=== PATIENT | male | born 1975 | race American Indian/Alaskan Native ===

== ENCOUNTER 2021-03-25 07:41 | Outpatient (CLI) | payer OTHER ==
[2021-03-25 08:57] LABS: Hematocrit 38.2 % (35.5-45.6); Hemoglobin 13.1 gm/dl (11.8-15.2); Mean Corpuscular HGB Conc 34 % (32-34); Mean Corpuscular Volume 93 fl (84-94); Platelet Count 170 K/mm3 (140-440); Red Blood Count 4.11 M/mm3 (3.65-5.03); Red Cell Distribution Width 13.1 % (13.2-15.2)
[2021-03-25 09:06] LABS: INR 0.85 (0.87-1.13)
[2021-03-25 09:08] LABS: BUN/Creatinine Ratio 16; Blood Urea Nitrogen 14 mg/dL (9-20); Calcium 9.7 mg/dL (8.4-10.2); Hemolysis Index 49
[2021-03-25] MEDS ORDERED: HYDROmorphone 1 MG/1 ML INJ IV NR (09:31)
[2021-03-25] MEDS ORDERED: SODIUM CHLORIDE 0.9% 500 ML 500 ML IV SCH (10:00)
[2021-03-25] MEDS ORDERED: ONDANSETRON 4 MG/2 ML INJ IV NR (10:00)
[2021-03-25] MEDS ORDERED: HYDROcodone/ACETAMINOPHEN 5-325 MG TAB PO NR (12:24)
--- NOTE | 2021-03-25 13:52 | Cat Scan Report ---
CT-GUIDED LIVER BIOPSY INDICATION : ELEVATED LIVER ENZYMES. COMPARISON: None at this facility PROCEDURE: The risks (including but not limited to bleeding and infection) and benefits were explain ed to the patient and informed consent was obtained. All CT scans at this location are performed usi ng CT dose reduction for ALARA by means of automated exposure control. A time out procedure was performed. The procedure site was prepped and draped in the usual sterile f ashion and lidocaine was used for local anesthesia. Anxiolysis was accomplished with 0.5 mg of IV Dil audid and 1 mg of IV Zofran. Using CT guidance, a 17-gauge introducer needle was advanced into the lateral right hepatic lobe. 2 s eparate 1.3 cm 18-gauge core biopsies were obtained and placed in formalin for pathologic analysis. The patient tolerated the procedure well but complained of dull right lateral abdominal pain followin g the biopsy. A follow-up scan was performed which demonstrates no evidence for internal hemorrhage. IMPRESSION: Successful CT-guided biopsy of the right hepatic lobe. Signer Name: Magdaleno Chan Jr, MD Signed: 03/25/2021 1:47 PM Workstation Name: [id number]
[2021-03-25 14:05] VITALS: BP 117/59
== END 2021-03-25 14:25 | disposition home or self-care (01) ==
LOC: CATHLABREC 07:41
PROVIDERS: ATTEND Internal Medicine Gastroenterology
DX: R74.8 Abnormal levels of other serum enzymes (principal); K76.89 Other specified diseases of liver; I10 Essential (primary) hypertension; Z90.49 Acquired absence of other specified parts of digestive tract; Z98.890 Other specified postprocedural states
CPT/HCPCS: 36415; 47000; 77012; 80048; 85027; 85610; 88307; J1170; J2405; 88312; 88313; J7040